=== PATIENT | male | born 1945 | race African-American/Black ===

== ENCOUNTER 2018-03-31 09:54 | Emergency (ER) | payer BC, SELFPAY ==
[2018-03-31 09:55] VITALS: BP 185/86; PULSE 93; RESP 16; TEMP 36.4; O2SAT 100; BMI 22.8
--- NOTE | 2018-03-31 11:05 | ED.VISSUMM ---
- ER Visit Summary Date of Service: 03/31/18 Chief Complaint: Right foot pain History of Present Illness: The patient is a 72 M who states she was seen by methods analyst. He reports the methods analyst was more interested in his left foot and right foot. He presents because of pain in his foot. Upon further questioning was determined that he has claudication. He developed claudication after walking up 4 flights of steps. He has had problems with pain for approximately 1 year. He is a non-smoker. He states he has seen Dr. Surjit Hurtado. He presently denies pain. He is concerned because of the wound on his toe that was self-inflicted by cutting the skin with clippers. He denies fever, chills night sweats. He denies weight gain or weight loss. He denies any bowel or bladder dysfunction. He denies any urologic symptoms. He states he has a non-smoker. Physical Examination: Pleasant elderly gentleman with elevated blood pressure 185/86. HEENT exam is unremarkable. Heart is regular without murmur, gallop or rub. S1 and S2 are normal. Lungs are clear to auscultation with good movement of air bilaterally. Abdomen soft nontender no palpable cell mass or abdominal bruit. Lower extremity exam is remarkable for stigmata of peripheral vascular disease with thickened toenails, absent of hair on toes and legs. No palpable PT or DP pulse bilaterally. There is monophasic DP and PT flow on the right. There is biphasic flow PT left and monophasic versus biphasic flow DP left. Test Results: Outpatient vascular study ordered after discussion with Dr. Edwards covering for Dr. Hurtado. Also spoke with vascular personnel and scheduling personnel. Outpatient service sheet completed Emergency Department Course and Treatment: Lower extremity arterial exam with treadmill exercising (dynamic study). Treatment Plan: Outpatient follow-up with Dr. Surjit Hurtado Disposition: Discharged home Impression: 1. Pain lower extremity secondary to peripheral vascular disease (claudication long distance) This note was generated with [employer] dictation software. It may contain incorrect words, spelling, and punctuation that were not noted in review of the chart prior to signing ED Disposition - Plan for ED Patient: Disposition: Home or Assisted Living Chief Complaint: Lower Extremity Injury Instructions: A Walking Program for Peripheral Arterial Disease (PAD), Discharge Instructions for Peripheral Vascular Disease, ED PVD Referrals: Frederic Anguiano MD [Primary Care Provider] - Surjit Hurtado MD [STAFF PHYSICIAN] - 5-7 Days Additional Instructions: You will need to call scheduling at [phone] to schedule outpatient arterial exam of your lower extremities
--- NOTE | 2018-03-31 11:06 | NURSING ---
DR BELCHER PAGED
--- NOTE | 2018-03-31 11:15 | ED.DCSUM_ITS ---
- ER Visit Summary Date of Service: 03/31/18 Chief Complaint: Right foot pain History of Present Illness: The patient is a 72 M who states she was seen by medical malpractice paralegal. He reports the medical malpractice paralegal was more interested in his left foot and right foot. He presents because of pain in his foot. Upon further questioning was determined that he has claudication. He developed claudication after walking up 4 flights of steps. He has had problems with pain for approximately 1 year. He is a non-smoker. He states he has seen Dr. Surjit Hurtado. He presently denies pain. He is concerned because of the wound on his toe that was self-inflicted by cutting the skin with clippers. He denies fever, chills night sweats. He denies weight gain or weight loss. He denies any bowel or bladder dysfunction. He denies any urologic symptoms. He states he has a non- smoker. Physical Examination: Pleasant elderly gentleman with elevated blood pressure 185/86. HEENT exam is unremarkable. Heart is regular without murmur, gallop or rub. S1 and S2 are normal. Lungs are clear to auscultation with good movement of air bilaterally. Abdomen soft nontender no palpable cell mass or abdominal bruit. Lower extremity exam is remarkable for stigmata of peripheral vascular disease with thickened toenails, absent of hair on toes and legs. No palpable PT or DP pulse bilaterally. There is monophasic DP and PT flow on the right. There is biphasic flow PT left and monophasic versus biphasic flow DP left. Test Results: Outpatient vascular study ordered after discussion with Dr. Edwards covering for Dr. Hurtado. Also spoke with vascular personnel and scheduling personnel. Outpatient service sheet completed Emergency Department Course and Treatment: Lower extremity arterial exam with treadmill exercising (dynamic study). Treatment Plan: Outpatient follow-up with Dr. Surjit Hurtado Disposition: Discharged home Impression: 1. Pain lower extremity secondary to peripheral vascular disease (claudication long distance) This note was generated with [employer] dictation software. It may contain incorrect words, spelling, and punctuation that were not noted in review of the chart prior to signing ED Disposition - Plan for ED Patient: Disposition: Home or Assisted Living Chief Complaint: Lower Extremity Injury Instructions: A Walking Program for Peripheral Arterial Disease (PAD), Discharge Instructions for Peripheral Vascular Disease, ED PVD Referrals: Frederic Anguiano MD [Primary Care Provider] - Surjit uHrtado MD [STAFF PHYSICIAN] - 5-7 Days Additional Instructions: You will need to call scheduling at [phone] to schedule outpatient arterial exam of your lower extremities
[2018-03-31 11:41] VITALS: BP 183/92; PULSE 82; RESP 14; O2SAT 98
== END 2018-03-31 12:00 | disposition home or self-care (01) ==
PROVIDERS: Emergency Provider Emergency Medicine; Family Provider Internal Medicine; PCP Internal Medicine
DX: I73.9 Peripheral vascular disease, unspecified (principal); M25.571 Pain in right ankle and joints of right foot
CPT/HCPCS: 99282